=== PATIENT | male | born 1975 | race Caucasian/White ===

== ENCOUNTER 2019-05-24 21:24 | Emergency (ER) | payer BC ==
[~2019-05-24] VITALS: Ht 182.9 cm; Wt 127.0 kg
[2019-05-24] MEDS ORDERED: CORTISPORIN OTI10 M2 OTIC (22:12)
[2019-05-24 22:49] VITALS: BP 122/70
== END 2019-05-24 22:47 | disposition home or self-care (01) ==
LOC: ER 21:24
DX: H60.91 Unspecified otitis externa, right ear (principal)